=== PATIENT | female | born 1955 | race Hispanic/Latino ===

== ENCOUNTER → 2023-12-06 | Outpatient (CLI) | payer OTHER ==
[~2023-12-06] MED LIST: AMOX1TAB16 PO; ASPI-1005 PO; ATOR20TA65 PO; GUAI10LI14 PO; LETR2.5T7 PO; METO25 PO; PANT40TA54 PO
[2023-12-06 17:22] LABS: CREATININE 0.9 mg/dL (0.5-1.5)
== END | disposition home or self-care (01) ==
LOC: LAB 16:10
PROVIDERS: ATTEND Student in an Organized Health Care Education/Training Program
DX: R07.9 Chest pain, unspecified (principal)
CPT/HCPCS: 36415; 82565; 84520

== ENCOUNTER 2023-12-07 20:47 | Observation (INO) | payer OTHER ==
[~2023-12-07] VITALS: Ht 154.9 cm; Wt 71.1 kg
[~2023-12-07 20:47] MED LIST changes: -APIX5TAB PO; -METO25 PO
[2023-12-07 22:23] LABS: BASOPHILS # (AUTO) 0.04 K/uL (0.00-0.20); BASOPHILS % (AUTO) 0.5 % (0.0-5.0); EOSINOPHILS # (AUTO) 0.08 K/uL (0.00-0.70); EOSINOPHILS % (AUTO) 0.9 % (0.0-8.0); HEMATOCRIT 35.9 % (36-48); IMMATURE GRANULOCYTE ABSOLUTE 0.03 K/uL (0-1); LYMPHOCYTES # (AUTO) 2.3 K/uL (1.0-4.8); LYMPHOCYTES % (AUTO) 25.9 % (21.0-51.0); MEAN CORPUSCULAR HEMOGLOBIN 29.9 pg (27.0-33.0); MEAN CORPUSCULAR HGB CONC 34.3 g/dL (32.0-36.0); MEAN CORPUSCULAR VOLUME 87.3 fL (79-99); MONOCYTES # (AUTO) 0.7 K/uL (0.1-1.0); MONOCYTES % (AUTO) 7.7 % (3.0-13.0); NEUTROPHILS # (AUTO) 5.7 K/uL (1.8-7.7); NEUTROPHILS % (AUTO) 64.7 % (40.0-77.0); PLATELET COUNT (AUTO) 314 K/uL (130-400); RED BLOOD CELL COUNT(AUTO) 4.11 MIL/uL (4.00-5.50); RED CELL DISTRIBUTION WIDTH 12.7 % (11.0-15.5); WHITE BLOOD COUNT (AUTO) 8.8 K/uL (4.8-10.8)
[2023-12-07 22:42] LABS: ALBUMIN 3.4 g/dL (3.5-5.0); BILIRUBIN,TOTAL 0.4 mg/dL (0.2-1.0); CREATININE 1.1 mg/dL (0.5-1.5); POTASSIUM 3.8 mmol/L (3.5-5.1); TOTAL PROTEIN, SERUM 7.1 g/dL (6.0-8.3)
[2023-12-07 22:44] LABS: B-TYPE NATRIURETIC PEPTIDE 53 pg/mL (0-100)
[2023-12-08] VITALS (9 sets, daily range): BP systolic 102–121; BP diastolic 54–76; PULSE 51–89; RESP 17–18; O2SAT 95–98
[2023-12-08 00:02] LABS: SARS-CoV-2, RNA, NAAT NEGATIVE SARS CoV-2 (NEGATIVE)
[2023-12-08 00:06] LABS: INFLUENZA TYPE A Negative For Type A (NEGATIVE); INFLUENZA TYPE B Negative For Type B (NEGATIVE)
[2023-12-08] MEDS ORDERED: METO25 PO (01:09)
[2023-12-08] MEDS ORDERED: ACETAMINOPHEN 650 MG SUPPOSITORY RC PRN (05:30)
[2023-12-08] MEDS ORDERED: IPRATROPIUM/ALBUTEROL SULFATE 3 ML SOLUTION IH PRN (05:30)
[2023-12-08] MEDS ORDERED: HYDRALAZINE 20MG/ML VIAL IV PRN (05:30)
[2023-12-08] MEDS ORDERED: ONDANSETRON 4MG INJ IVP PRN (05:30)
[2023-12-08] MEDS ORDERED: DOCUSATE SODIUM 100 MG CAP PO PRN (05:30)
[2023-12-08] MEDS ORDERED: ACETAMINOPHEN 325 MG TAB PO PRN (05:30)
[2023-12-08] MEDS ORDERED: ALBUTEROL 0.083% 2.5 MG/3 ML INH IH PRN (05:30)
[2023-12-08] MEDS ORDERED: LACTULOSE 20 GM/30 ML UDCUP PO PRN (05:30)
[2023-12-08] MEDS: LACTATED RINGERS 1000ML 1,000 ML IV SCH ×2 (05:49→13:15)
[2023-12-08] MEDS: INSULIN HUMULIN R 100 UNIT/ML 3ML SQ SCH ×4 (06:31→21:00)
[2023-12-08] MEDS ORDERED: IOHEXOL 350 MG/ML 100ML INFUS..BTL IV ONE (07:33)
[2023-12-08] MEDS ORDERED: NITROGLYCERIN 4.1 GM SPRAY TL ONE (08:06)
[2023-12-08 12:20] LABS: BASOPHILS # (AUTO) 0.03 K/uL (0.00-0.20); BASOPHILS % (AUTO) 0.6 % (0.0-5.0); EOSINOPHILS # (AUTO) 0.07 K/uL (0.00-0.70); EOSINOPHILS % (AUTO) 1.3 % (0.0-8.0); HEMATOCRIT 37.3 % (36-48); IMMATURE GRANULOCYTE ABSOLUTE 0.01 K/uL (0-1); LYMPHOCYTES # (AUTO) 1.5 K/uL (1.0-4.8); LYMPHOCYTES % (AUTO) 28.5 % (21.0-51.0); MEAN CORPUSCULAR HEMOGLOBIN 30.1 pg (27.0-33.0); MEAN CORPUSCULAR HGB CONC 33.8 g/dL (32.0-36.0); MONOCYTES # (AUTO) 0.4 K/uL (0.1-1.0); MONOCYTES % (AUTO) 7.1 % (3.0-13.0); NEUTROPHILS # (AUTO) 3.3 K/uL (1.8-7.7); NEUTROPHILS % (AUTO) 62.3 % (40.0-77.0); PLATELET COUNT (AUTO) 294 K/uL (130-400); RED BLOOD CELL COUNT(AUTO) 4.19 MIL/uL (4.00-5.50); RED CELL DISTRIBUTION WIDTH 12.7 % (11.0-15.5); WHITE BLOOD COUNT (AUTO) 5.3 K/uL (4.8-10.8)
[2023-12-08 12:59] LABS: CREATININE 0.8 mg/dL (0.5-1.5); MAGNESIUM 2.2 mg/dL (1.80-2.40); POTASSIUM 3.9 mmol/L (3.5-5.1); THYROID STIMULATING HORMONE 0.87 uIU/mL (0.36-3.74)
[2023-12-08] MEDS: ATORVASTATIN 20 MG TABLET PO SCH (13:09)
[2023-12-08] MEDS: ENOXAPARIN SODIUM 40 MG/0.4 ML SYRINGE SQ SCH (13:10)
[2023-12-08] MEDS: PANTOPRAZOLE 40 MG TAB DR PO SCH ×2 (13:10→20:59)
[2023-12-08] MEDS: ASPIRIN 81MG CHEW TAB PO SCH (13:10)
[2023-12-08] MEDS: AMIODARONE 200 MG TABLET PO SCH (15:00)
[2023-12-08] MEDS: METOPROLOL TARTRATE 25 MG TAB PO SCH (20:59)
[2023-12-09 04:00] VITALS: BP 118/58; PULSE 66; RESP 18
[2023-12-09 04:43] LABS: BASOPHILS # (AUTO) 0.03 K/uL (0.00-0.20); BASOPHILS % (AUTO) 0.5 % (0.0-5.0); EOSINOPHILS # (AUTO) 0.08 K/uL (0.00-0.70); EOSINOPHILS % (AUTO) 1.2 % (0.0-8.0); HEMATOCRIT 36.9 % (36-48); IMMATURE GRANULOCYTE ABSOLUTE 0.02 K/uL (0-1); LYMPHOCYTES % (AUTO) 30.3 % (21.0-51.0); MEAN CORPUSCULAR HEMOGLOBIN 30.7 pg (27.0-33.0); MEAN CORPUSCULAR HGB CONC 34.7 g/dL (32.0-36.0); MEAN CORPUSCULAR VOLUME 88.5 fL (79-99); MONOCYTES # (AUTO) 0.5 K/uL (0.1-1.0); MONOCYTES % (AUTO) 7.2 % (3.0-13.0); NEUTROPHILS % (AUTO) 60.5 % (40.0-77.0); PLATELET COUNT (AUTO) 281 K/uL (130-400); RED BLOOD CELL COUNT(AUTO) 4.17 MIL/uL (4.00-5.50); RED CELL DISTRIBUTION WIDTH 12.7 % (11.0-15.5); WHITE BLOOD COUNT (AUTO) 6.6 K/uL (4.8-10.8)
[2023-12-09 04:59] LABS: CREATININE 0.8 mg/dL (0.5-1.5); MAGNESIUM 2.1 mg/dL (1.80-2.40); PHOSPHORUS 3.3 mg/dL (2.5-4.9); POTASSIUM 4.1 mmol/L (3.5-5.1)
[2023-12-09 05:13] LABS: B-TYPE NATRIURETIC PEPTIDE 122 pg/mL (0-100)
[2023-12-09] MEDS: LACTATED RINGERS 1000ML 1,000 ML IV SCH (06:05)
[2023-12-09] MEDS: INSULIN HUMULIN R 100 UNIT/ML 3ML SQ SCH ×2 (06:26→11:30)
[2023-12-09 07:32] VITALS: PULSE 73; RESP 18; O2SAT 98
[2023-12-09 08:00] VITALS: BP 113/73; PULSE 69; RESP 16
[2023-12-09] MEDS: LETROZOLE PO SCH ×2 (08:19→08:29)
[2023-12-09] MEDS: METOPROLOL TARTRATE 25 MG TAB PO SCH (08:19)
[2023-12-09] MEDS: AMIODARONE 200 MG TABLET PO SCH (08:19)
[2023-12-09] MEDS: ENOXAPARIN SODIUM 40 MG/0.4 ML SYRINGE SQ SCH ×3 (08:27→08:33)
[2023-12-09] MEDS: PANTOPRAZOLE 40 MG TAB DR PO SCH (08:27)
[2023-12-09] MEDS: ATORVASTATIN 20 MG TABLET PO SCH (08:27)
[2023-12-09] MEDS: ASPIRIN 81MG CHEW TAB PO SCH (08:28)
[2023-12-09] MEDS ORDERED: APIXABAN 5 MG TABLET PO SCH (09:00)
[2023-12-09] MEDS ORDERED: APIX5TAB PO ×2 (10:55)
[2023-12-09 12:00] VITALS: BP 132/74; PULSE 75; RESP 18
== END 2023-12-09 13:30 | disposition home or self-care (01) ==
LOC: EDH 20:47 → DIRECT 21:06 → 4BH 23:34
PROVIDERS: ADMIT Internal Medicine Critical Care Medicine; ATTEND Internal Medicine Critical Care Medicine
DX: R00.1 Bradycardia, unspecified (principal); Z20.822 Contact with and (suspected) exposure to COVID-19; R07.89 Other chest pain; I48.0 Paroxysmal atrial fibrillation; N18.31 Chronic kidney disease, stage 3a; E78.5 Hyperlipidemia, unspecified; C50.912 Malignant neoplasm of unspecified site of left female breast; C50.911 Malignant neoplasm of unspecified site of right female breast; K21.9 Gastro-esophageal reflux disease without esophagitis; E55.9 Vitamin D deficiency, unspecified; R22.1 Localized swelling, mass and lump, neck; R73.9 Hyperglycemia, unspecified; Z79.82 Long term (current) use of aspirin; Z79.899 Other long term (current) drug therapy; Z92.21 Personal history of antineoplastic chemotherapy; Z90.49 Acquired absence of other specified parts of digestive tract; Z90.710 Acquired absence of both cervix and uterus
CPT/HCPCS: 99284; 84484 ×2; 80053; 83880 ×2; 85025 ×3; 87804 ×2; 36415 ×3; 87635; 71045; 93005; 96372; 96360; 96361 ×2; 84443; 83735 ×2; 80048 ×2; 82948 ×6; 84439; 75574; 93880; 94664; 84100; G0378 ×40; J1650; Q9967

== ENCOUNTER → 2023-12-07 | Outpatient (CLI) | payer OTHER ==
[~2023-12-07] MED LIST changes: +APIX5TAB PO
[2023-12-07 13:09] LABS: CHOLESTEROL 148 mg/dL (<200); HDL CHOLESTEROL 57 mg/dL (35-85); LDL DIRECT 76 mg/dL (0-99); TRIGLYCERIDES 77 mg/dL (30-200)
== END | disposition home or self-care (01) ==
LOC: LAB 08:23
PROVIDERS: ATTEND Student in an Organized Health Care Education/Training Program
DX: R07.9 Chest pain, unspecified (principal); Z79.899 Other long term (current) drug therapy
CPT/HCPCS: 36415; 80061; 82607; 82652

== ENCOUNTER → 2023-12-13 | Outpatient (CLI) | payer OTHER ==
[~2023-12-13] MED LIST changes: -AMOX1TAB16 PO; +APIX5TAB PO; -ASPI-1005 PO; -GUAI10LI14 PO; +IOHEXOL 350 MG/ML 100ML INFUS..BTL IV ONE
== END | disposition home or self-care (01) ==
LOC: RAH 10:45
PROVIDERS: ATTEND Student in an Organized Health Care Education/Training Program
DX: R07.9 Chest pain, unspecified (principal)
CPT/HCPCS: Q9967

== ENCOUNTER → 2023-12-19 | Outpatient (CLI) | payer OTHER ==
[~2023-12-19] MED LIST changes: +AMOX1TAB16 PO; +ASPI-1005 PO; +GUAI10LI14 PO; -IOHEXOL 350 MG/ML 100ML INFUS..BTL IV ONE; +METO25 PO
== END | disposition home or self-care (01) ==
LOC: RAH 13:16
PROVIDERS: ATTEND Internal Medicine
DX: S09.90XA Unspecified injury of head, initial encounter (principal); X58.XXXA Exposure to other specified factors, initial encounter; Y93.89 Activity, other specified; Y92.89 Other specified places as the place of occurrence of the external cause; Y99.8 Other external cause status
CPT/HCPCS: 70450

== ENCOUNTER → 2024-12-08 | Outpatient (CLI) | payer OTHER ==
[~2024-12-08] MED LIST changes: -AMOX1TAB16 PO; -ASPI-1005 PO; -GUAI10LI14 PO; -METO25 PO
== END | disposition home or self-care (01) ==
LOC: SHCH 13:27
PROVIDERS: ATTEND Student in an Organized Health Care Education/Training Program
DX: R07.9 Chest pain, unspecified (principal)
CPT/HCPCS: 93306